=== PATIENT | male | born 1975 | race African-American/Black ===

== ENCOUNTER 2017-01-04 10:35 | Inpatient (IN) | payer OTHER ==
[~2017-01-04] VITALS: Ht 175.3 cm; Wt 95.1 kg
[2017-01-04] MEDS ORDERED: AMLO5TAB2 PO (11:08)
[2017-01-04] MEDS ORDERED: MECLIZINE CHEWABLE 25 MG TAB ONE ×2 (11:10→12:46)
[2017-01-04] MEDS ORDERED: ONDANSETRON 2MG/ML, 2ML ONE (11:10)
[2017-01-04] MEDS ORDERED: DIAZEPAM 5 MG/ML, 2ML ONE (11:15)
[2017-01-04] MEDS ORDERED: SODIUM CHLORIDE 0.9% 1,000ML IVBOLUS ONE (11:30)
[2017-01-04] MEDS ORDERED: ONDANSETRON 2MG/ML, 2ML IVPush ONE (11:30)
[2017-01-04] MEDS ORDERED: SODIUM CHLORIDE FLUSH 10ML SYR IVF ONE (11:30)
[2017-01-04] MEDS ORDERED: DIAZEPAM 5 MG/ML, 2ML IV ONE ×2 (11:30→14:00)
[2017-01-04 11:38] LABS: BLOOD UREA NITROGEN 18 mg/dL (7-18)
[2017-01-04 11:45] LABS: IS PT STATUS REG ER OR PRE ER? YES
[2017-01-04] MEDS ORDERED: MECLIZINE CHEWABLE 25 MG TAB PO ONE (12:30)
[2017-01-04] MEDS ORDERED: hydrALAzine 20 MG/ML, 1ML IV ONE (14:00)
[2017-01-04] MEDS ORDERED: DOCUSATE 100 MG CAPSULE PO PRN (14:30)
[2017-01-04] MEDS ORDERED: HYDROcodone/APAP 5/325 TABLET PO PRN (14:30)
[2017-01-04] MEDS ORDERED: METOCLOPRAMIDE 5 MG/ML, 2ML IVPush PRN (14:30)
[2017-01-04] MEDS ORDERED: hydrALAzine 20 MG/ML, 1ML IVPush PRN (14:30)
[2017-01-04] MEDS ORDERED: METOCLOPRAMIDE 10MG TABLET PO PRN (14:30)
[2017-01-04] MEDS ORDERED: DIAZEPAM 5 MG TABLET PO PRN (14:30)
[2017-01-04 14:49] VITALS: BP 152/103
[2017-01-04] MEDS: SODIUM CHLORIDE 0.9% 1,000 ML IV SCH (15:24)
[2017-01-04] MEDS ORDERED: GADOBUTROL 10 MMOL/10 ML PFS ONE (16:12)
[2017-01-04 19:19] VITALS: BP 135/87
[2017-01-04 20:33] LABS: DAU SCREEN DISCLAIMER
[2017-01-05 01:47] VITALS: BP 128/80
[2017-01-05] MEDS: SODIUM CHLORIDE 0.9% 1,000 ML IV SCH (03:41)
[2017-01-05 06:31] LABS: BLOOD UREA NITROGEN 11 mg/dL (7-18)
[2017-01-05 07:23] VITALS: BP 138/88
[2017-01-05] MEDS ORDERED: AMLODIPINE 5 MG TABLET PO SCH (09:00)
[2017-01-05] MEDS ORDERED: MECL-76 PO (12:36)
[2017-01-05] MEDS ORDERED: DIAZ5TAB4 PO (12:36)
[2017-01-05 13:30] VITALS: BP 147/90
== END 2017-01-05 22:30 | disposition home or self-care (01) | DRG 155 ==
LOC: ED 10:53 → EDIP 13:42 → 4WST 14:57
PROVIDERS: ADMIT Family Medicine; ATTEND Family Medicine
DX: H93.3X9 Disorders of unspecified acoustic nerve (principal); N17.9 Acute kidney failure, unspecified; I10 Essential (primary) hypertension; H83.09 Labyrinthitis, unspecified ear; I16.0 Hypertensive urgency; G43.909 Migraine, unspecified, not intractable, without status migrainosus; Z88.5 Allergy status to narcotic agent; Z88.8 Allergy status to other drugs, medicaments and biological substances; Z87.891 Personal history of nicotine dependence; Z79.899 Other long term (current) drug therapy; Z82.49 Family history of ischemic heart disease and other diseases of the circulatory system
CPT/HCPCS: 36415; 70450; 70553; 71010; 80048; 80061; 80307; 81003; 82040; 83036; 84484; 85025; 93005; 93306; 93880; 96361; 96374; 96375; 96376; A9585; J2405; J3360; J0360; J7030